=== PATIENT | male | born 1950 | race Caucasian/White ===

== ENCOUNTER → 2024-07-04 | Outpatient (CLI) | payer MEDICARE, OTHER, SELFPAY ==
--- NOTE | 2024-07-04 | XR_ITS ---
Examination: PA lateral chest 2 views TECHNIQUE: Upright PA lateral chest 2 views Exam date and time: July 04, 2024 1130 hours Comparison October 17, 2023 INDICATIONS: History left lung pneumonia, bilateral pulmonary nodules on CT chest October 17, 2023 FINDINGS: Normal heart size No current pneumonia Suspicious for 5 mm pulmonary nodule left upper lobe IMPRESSION: No current pneumonia Suspicious for 5 mm pulmonary nodule left upper lobe, consider repeat CT chest without contrast to compare with the October 17, 2023 exam
[2024-07-04 12:04] LABS: Basophils % (Auto) 1 % (0-2.5); Eosinophils # (Auto) 0.2 Thou/mm3 (0.0-0.5); Eosinophils % (Auto) 3 % (0-10); Hematocrit 42.1 % (41.0-53.0); Hemoglobin 14.8 g/dL (13.5-16.0); Immature Granulocytes % (Auto) 0 % (0-0); Immature Granulocytes Auto 0.02 Thou/mm3 (0.00-0.00); Lymphocytes # (Auto) 1.2 Thou/mm3 (1.0-4.8); Lymphocytes % (Auto) 21 % (10-50); Mean Corpuscular HGB Conc 35.2 g/dl (31.0-37.0); Mean Corpuscular Hemoglobin 33.4 pg (25.0-35.0); Mean Corpuscular Volume 95 fL (80-100); Monocytes # (Auto) 0.5 Thou/mm3 (0.0-0.8); Monocytes % (Auto) 10 % (0-12); Neutrophils # (Auto) 3.6 Thou/mm3 (1.8-7.7); Neutrophils % (Auto) 66 % (37-80); Nucleated Red Blood Cell % 0 /100 WBC (0); Platelet Count 184 Thou/mm3 (140-440); RDW Standard Deviation 44.9 fL (35.1-43.9); Red Blood Count 4.43 Miln/mm3 (4.50-5.90); White Blood Count 5.5 Thou/mm3 (3.8-10.6)
[2024-07-04 12:19] LABS: Glucose Estimated Average 103 mg/dL (80-131); Hemoglobin A1C 5.2 % Hgb (4.8-6.0)
[2024-07-04 12:44] LABS: Anion Gap 9 (7-16); BUN/Creatinine Ratio 14 Ratio (12-20); Blood Urea Nitrogen 20 mg/dL (9-23); Carbon Dioxide 25.5 mMol/L (20.0-31.0); Chloride 109 mMol/L (98-107); Creatinine (Component) 1.4 mg/dL (0.6-1.3); Sodium 143 mMol/L (136-145); eGFR 53 See Note
[2024-07-04 12:45] LABS: Alanine Aminotransferase 44 U/L (10-49); Albumin, Serum 4.4 gm/dL (3.4-4.8); Albumin/Globulin Ratio 1.8 (1.2-2.2); Alkaline Phosphatase 79 U/L (46-116); Aspartate Amino Transferase 17 U/L (0-34); Calcium 9.3 mg/dL (8.3-10.6); Calcium (Corrected) 9.3 mg/dL (8.5-10.1); Cardiac Risk Estimate 3.9 RATIO (4.0-6.7); Cholesterol 151 mg/dL (132-200); Free T4 (Free Thyroxine) 1.15 ng/dL (0.89-1.76); Globulin 2.5 gm/dL (2.3-3.5); Glucose 115 mg/dL (74-106); HDL Cholesterol 39 mg/dL (40-60); LDL Cholesterol,Calculated 92 mg/dL (0-130); Osmolality,Calculated 288 (275-295); Thyroid Stimulating Hormone 1.35 uIU/mL (0.55-4.78); Total Protein 6.9 gm/dL (5.7-8.2); Triglycerides 101 mg/dL (30-150)
[2024-07-04 13:00] LABS: Vitamin D 25 Hydroxy Total 23.6 ng/mL (7.3-40.2)
[2024-07-04 13:19] LABS: Hepatitis C Antibody Non Reactive (Non React)
[2024-07-09 19:49] LABS: PSA, Free 0.37 ng/mL; PSA, Total 0.8 ng/mL (< OR = 4.0)
== END | disposition home or self-care (01) ==
LOC: CDIM 10:23 → COPL 11:38
PROVIDERS: PCP Family Medicine; Referring Provider Nurse Practitioner Family; Visit Provider Radiology Diagnostic Radiology
DX: R05.9 Cough, unspecified (principal); E55.9 Vitamin D deficiency, unspecified; Z13.1 Encounter for screening for diabetes mellitus; Z12.5 Encounter for screening for malignant neoplasm of prostate; Z11.59 Encounter for screening for other viral diseases; Z13.220 Encounter for screening for lipoid disorders; Z13.29 Encounter for screening for other suspected endocrine disorder
CPT/HCPCS: 36415; 71046; 80053; 80061; 82306; 83036; 84153; 84154; 84439; 84443; 85025; 86803

== ENCOUNTER → 2024-08-22 | Outpatient (CLI) | payer MEDICARE, OTHER, SELFPAY ==
--- NOTE | 2024-08-22 13:00 | XR_ITS ---
Examination: CT chest, without intravenous contrast. Sagittal and coronal 2-D reconstructions. Exam date and time: August 22, 2024 1305 hours Comparison October 17, 2023 INDICATIONS: Chest CT 06/18/2023 numerous bilateral solid pulmonary nodules ranging in size from 3 10 mm CTDI:vol (mGy) 18.8 DLP: (mGycm) 802 Technique: Multiple 3.0 mm axial sections of the chest to been obtained. Bone and lung density settings are obtained. Sagittal and coronal 2-D reconstructions have been obtained. Low dose protocols were performed. One or more of the following dose reduction techniques were used; automated exposure control, adjustment of the mA and/or KV according to patient size, use of iterative reconstruction technique. Findings: AP dimension ascending thoracic aorta 4.9 cm Pulmonary artery segments are not enlarged Mild calcification left anterior descending coronary artery Mild enlargement left atrium left ventricle No definite change in bilateral pulmonary nodules No pneumonia or pulmonary edema No focal liver or splenic lesions Gallstones IMPRESSION: Aneurysmal dilatation ascending thoracic aorta No definite change in bilateral pulmonary nodules, recommend 1 continued 6 month follow-up CT chest without contrast
== END | disposition home or self-care (01) ==
LOC: CCTX 12:56
PROVIDERS: PCP Nurse Practitioner Family; Referring Provider Nurse Practitioner Family; Visit Provider Nurse Practitioner Family
DX: I71.21 Aneurysm of the ascending aorta, without rupture (principal); R91.8 Other nonspecific abnormal finding of lung field
CPT/HCPCS: 71250

== ENCOUNTER 2024-10-18 05:50 | Emergency (ER) | payer MEDICARE, OTHER, SELFPAY ==
[2024-10-18 05:52] VITALS: BP 160/82; PULSE 70; RESP 18; TEMP 37.1; O2SAT 96; BMI 36.3
--- NOTE | 2024-10-18 06:48 | EDNOTE_ITS ---
ED Dental RME/HPI General Chief complaint: Dental/Oral/Throat Stated complaint: THROAT PAIN Time Seen by Provider: 10/18/24 06:19 Arrival date/time: 10/18/24 05:50 This is a 74-year-old male that comes in with complaints of throat pain for the past few days. Patient denies any fever or chills. Patient denies any other complaints. Patient states that he does have congestion sometimes but it is not more within the ordinary congestion. Patient denies any nausea, vomiting, diarrhea, rash. Related Data Home Medications ?Medication ?Instructions ?Recorded ?Confirmed albuterol sulfate 90 mcg/actuation 2 puff inhalation Q 4HR PRN 04/20/20 04/20/20 aerosol inhaler Shortness Of Breath Or Wheez ing famotidine 40 mg tablet (Pepcid) 40 mg PO QDAY 0 04/20/20 Previous Rx's ?Medication ?Instructions ?Recorded amoxicillin 875 mg tablet 875 mg PO BID #20 tabs 10/16 azithromycin 250 mg tablet See Rx Instructions PO .COM PLEX #6 10/17/23 tabs ibuprofen 800 mg tablet 800 mg PO Q6H PRN pain #10 t abs 10/18/24 Allergies Allergy/AdvReac Type Severity Reaction Status Date / Time Iodinated Contrast Media Allergy Verified 10/18/24 05:59 Review of Systems Review of Systems Systems Reviewed: All systems reviewed, normal except as documented Past Medical History Past Medical History RESPIRATORY: Positive Asthma (Per Pt he does not have asthma) GENITOURINARY: Positive Kidney Stones MUSCULOSKELETAL: Positive Arthritis Social History SMOKING STATUS: Never smoker SUBSTANCE USE: does not use ALCOHOL: Never ED Exam Narrative Physical exam: VITAL SIGNS: Reviewed. GENERAL APPEARANCE: Alert and interactive, follows commands, no acute distress, HEAD AND FACE: Non-traumatic. ENT: PERRL, conjuctiva pink and clear, eyelid no trauma, Mucous membrane moist. Mild erythema to posterior pharynx NECK: Supple, nontender, no nuchal rigidity. CHEST: No tenderness, no crepitus, no paradoxical movement, no retractions. LUNGS: Clear, well ventilated, symmetric, no rales, no wheezing, no rhonchi, no stridor, good breath sounds bilaterally. HEART: Regular rate, regular rhythm, no murmur, no gallops. ABDOMEN: Soft, nondistended, no guarding, nontender NEUROLOGICAL: Gross motor function intact sensory function intact, Appropriate for age. MUSCULOSKELETAL: low back nontender, full range of motion. EXTREMITIES: No redness no swelling no skin breakdown on bilateral foot and leg. Distal neurovascular status intact bilateral foot SKIN: Color pink, dry, no rash, no lacerations, no abrasions, no contusions. Course Quality Measures none Orders Category Date Time Status Strep A Rapid Stat Lab 10/18/24 06:38 Completed Acetaminophen Tab [Tylenol ES Tab] Med 10/18/24 06:36 Discontinued 1,000 mg PO X1 ONE Dexamethasone Inj [Decadron Inj] Med 10/18/24 06:36 Discontinued 10 mg PO X1 ONE Ibuprofen Tab [Motrin Tab] Med 10/18/24 06:35 Discontinued 800 mg PO X1 ONE Vital Signs Vital signs: Vital Signs Temperature 98.8 F 10/18/24 05:52 Pulse Rate 70 10/18/24 05:52 Respiratory Rate 18 10/18/24 05:52 Blood Pressure 160/82 H 10/18/24 05:52 Pulse Oximetry (%) 96 10/18/24 05:52 Oxygen Delivery Method Room Air 10/18/24 05:52 Dental / Oral MDM Narrative MDM Narrative:: Pt given decadron, tylenol and ibuprofen. Pt felt better. Pt strep was negative. Pt told to follow up with primary provider in 1-2 days. Come back to ED if symptoms change or worsen. Patient data External records reviewed:: [facility] previous records Clinical information provided by:: patient Social determinants that could affect healthcare access:: none Patient has the following chronic illnesses:: None How is presenting disease/condition affected by chronic disease/condition?: no chronic disease Evaluation data The following diagnostics were reviewed and interpreted by me:: lab results Lab and/or radiology exams considered but not ordered:: None Interpretation Summary: See note Medications / Prescriptions Medications or Prescriptions considered but not ordered:: None Medication administrations:: Medication Administration History Discontinued Medications Acetaminophen (Acetaminophen 500 Mg Tablet) 1,000 mg PO X1 ONE Stop: 10/18/24 06:37 Last Admin: 10/18/24 06:59 Dose: 1,000 mg Documented By: AC Dexamethasone Sodium Phosphate (Dexamethasone Sod Phos Inj 10 Mg/Ml Vial) 10 mg PO X1 ONE Stop: 10/18/24 06:37 Last Admin: 10/18/24 07:00 Dose: 10 mg Documented By: RANDY Ibuprofen (Ibuprofen Tab 400 Mg Tablet) 800 mg PO X1 ONE Stop: 10/18/24 06:36 Last Admin: 10/18/24 06:59 Dose: 800 mg Documented By: RANDY See MAR Consultations Consultation(s) initiated? (list below): No Diagnosis Dental Differential Diagnosis: other (Strep throat, URI, COVID, influenza) Most likely diagnosis given after review of the tests above:: URI Admission Indicated Admission indicated?: not indicated Admission Request Was there a request for admission?: No Disposition Plan Disposition Plan: Discharge Discharge Attestation Discharge Attestation: The patient and all family members were given an opportunity to ask questions and understood the discharge instructions. Discharge instructions specifically effects, indications for sooner follow up or return to the emergency department, and the expected course of current diagnosis. Patient condition: Stable Discharge Plan Plan Patient Disposition: HOME (Self Care) Patient condition on transfer: Stable Prescriptions/Referrals Prescriptions/Med Rec: New ibuprofen 800 mg tablet 800 mg PO Q6H PRN (Reason: pain) Qty: 10 0RF No Action famotidine [Pepcid] 40 mg tablet 40 mg PO QDAY albuterol sulfate 90 mcg/actuation HFA aerosol inhaler 2 puff INHALATION Q4HR PRN (Reason: Shortness Of Breath Or Wheezing) Patient Comments: TAKE 2 PUFFS BY MOUTH EVERY 4 HOURS NEEDED amoxicillin 875 mg tablet 875 mg PO BID Qty: 20 0RF azithromycin 250 mg tablet See Rx Instructions .ROUTE .COMPLEX Qty: 6 0RF Rx Instructions: For 250 mg dose pack: take 500 mg today (day 1), then 250 mg for 4 days (days 2-5) Referrals: Dusty Huynh([facility]MD [Primary Care Provider] - In 1 week Problem List Clinical Impression: URI (upper respiratory infection) Patient/Caregiver Discharge Instructions Discharge Activity: activity as tolerated Education Materials: ED URI, Viral, No Abx (Adult) Additional Instructions: Follow up with primary provider in 1-2 days. Come back to ED if symptoms change or worsen Print Language: Persian Stand Alone Forms: Jackie Award Info., Patient Portal Info Letter PA/SOWMYA Supervising Physician JHONATAN/SOWMYA Supervising Physician: agnela
[2024-10-18 06:58] LABS: Strep A Rapid Negative (Negative)
[2024-10-18] MEDS: IBUPROFEN TAB 400 MG TABLET 800 MG PO (06:59)
[2024-10-18] MEDS: ACETAMINOPHEN 500 MG TABLET 1000 MG PO (06:59)
[2024-10-18] MEDS: DEXAMETHASONE SOD PHOS INJ 10 MG/ML VIAL PO (07:00)
== END 2024-10-18 08:05 | disposition home or self-care (01) ==
PROVIDERS: Nurse Practitioner Family; Emergency Provider Emergency Medicine; PCP Family Medicine
DX: J06.9 Acute upper respiratory infection, unspecified (principal)
CPT/HCPCS: 87651; 99283; J1100; A9270

== ENCOUNTER → 2024-10-20 | Outpatient (CLI) | payer MEDICARE, OTHER, SELFPAY ==
--- NOTE | 2024-10-20 12:13 | XR_ITS ---
Examination: Lumbar spine 3 views Technique one AP lateral coned lateral lower lumbar spine 3 views Date and time: October 20, 2024 1309 hours INDICATIONS: Low back pain months. FINDINGS: Adequate alignment lumbar vertebral bodies No lumbar fracture Mild to moderate diffuse lumbar disc narrowing Grade 1 anterolisthesis L3 on L4 Prominent lumbar spondylosis IMPRESSION: Mild to moderate diffuse lumbar degenerative disc disease
== END | disposition home or self-care (01) ==
PROVIDERS: PCP Nurse Practitioner Family; Referring Provider Nurse Practitioner Family; Visit Provider Nurse Practitioner Family
DX: M51.360 Other intervertebral disc degeneration, lumbar region with discogenic back pain only (principal)
CPT/HCPCS: 72100

== ENCOUNTER → 2024-12-02 | Outpatient (CLI) | payer MEDICARE, OTHER, SELFPAY ==
--- NOTE | 2024-12-02 13:14 | XR_ITS ---
Examination: Ultrasound soft tissue neck TECHNIQUE: Real scale sonographic images soft tissue neck Date and time: December 02, 2024, 1403 hours INDICATIONS: Sore throat 6 months. FINDINGS: No cystic or soft tissue mass in the neck IMPRESSION: No cystic or soft tissue masses in the neck
== END | disposition home or self-care (01) ==
PROVIDERS: PCP Nurse Practitioner Family; Referring Provider Nurse Practitioner Family; Visit Provider Nurse Practitioner Family
DX: J02.9 Acute pharyngitis, unspecified (principal)
CPT/HCPCS: 76536

== ENCOUNTER → 2024-12-05 | Outpatient (CLI) | payer MEDICARE, OTHER, SELFPAY ==
--- NOTE | 2024-12-05 10:50 | XR_ITS ---
Examination: Arterial duplex lower extremity study. Date and time of exam: December 05, 2024 1106 hours INDICATIONS: Bilateral leg pain and heaviness beginning one year ago Findings: Duplex sonographic imaging of the lower extremity arteries using B-mode/Real scale imaging and Doppler spectral analysis and color flow. Ankle brachial indices have been recorded. Right common femoral artery demonstrates triphasic flow. Right superficial femoral artery demonstrates triphasic flow. Right popliteal artery demonstrates triphasic flow. Right posterior tibial artery demonstrated triphasic flow. Right ankle/brachial index is 1.1. Left common femoral artery demonstrates triphasic flow. Left superficial femoral artery demonstrates triphasic flow. Left popliteal artery demonstrates triphasic flow. Left posterior tibial artery demonstrated triphasic flow. Left ankle/brachial index is 1.0. Impression: Negative study
== END | disposition home or self-care (01) ==
PROVIDERS: PCP Nurse Practitioner Family; Referring Provider Podiatrist; Visit Provider Podiatrist
DX: M79.605 Pain in left leg (principal); M79.604 Pain in right leg
CPT/HCPCS: 93925

== ENCOUNTER → 2024-12-31 | Outpatient (CLI) | payer MEDICARE, OTHER, SELFPAY ==
[2024-12-31 11:41] LABS: Blood Urea Nitrogen 27 mg/dL (9-23); Creatinine (Component) 1.5 mg/dL (0.6-1.3); eGFR 49 See Note
== END | disposition home or self-care (01) ==
LOC: COPL 10:26
PROVIDERS: PCP Family Medicine
DX: I70.213 Atherosclerosis of native arteries of extremities with intermittent claudication, bilateral legs (principal)
CPT/HCPCS: 36415; 82565; 84520

== ENCOUNTER 2025-01-07 12:38 | Outpatient (CLI) | payer MEDICARE, OTHER, SELFPAY ==
--- NOTE | 2025-01-07 11:30 | XR_ITS ---
Examination: CTA abdominal aorta iliofemoral runoff. 2-D sagittal coronal reconstructions. 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 3-D reconstructions, vascular 3-D postprocessing, including vascular maximum intensity projection images, 3-D volume rendering Low dose protocols were performed. One or more of the following dose reduction techniques were used; automated exposure control, adjustment of the mA and/or KV according to patient size, use of iterative reconstruction technique. Findings: No focal liver or splenic lesions Gallstones. No pancreatic or adrenal mass. Moderate renal parenchymal scar formation. No bowel obstruction No pericecal inflammatory change No diverticulitis Contracted urinary bladder Moderate prostatomegaly Abdominal aortic calcification no aneurysmal dilatation Common iliac and external iliac common femoral arteries intact No significant stenoses superficial femoral arteries bilaterally as well as popliteal arteries Trifurcation arteries fill to the ankles bilaterally IMPRESSION: No significant obstructive arterial disease involving the lower extremities.
[2025-01-07] MEDS: HYDROCORTISONE SOD SUCC INJ 100 MG 2 ML VIAL IV (13:50)
[2025-01-07 14:05] VITALS: BP 156/82; PULSE 62; RESP 17; TEMP 36.5; O2SAT 95
[2025-01-07 14:10] VITALS: BP 146/85; PULSE 59; RESP 18; O2SAT 96
[2025-01-07 14:13] VITALS: BP 155/108; PULSE 62; RESP 17; O2SAT 97
[2025-01-07 14:15] VITALS: BP 137/76; PULSE 59; RESP 17; O2SAT 96
[2025-01-07 14:20] VITALS: BP 144/78; PULSE 61; RESP 16; O2SAT 99
[2025-01-07 14:25] VITALS: BP 132/74; PULSE 59; RESP 16; TEMP 36.4; O2SAT 93
--- NOTE | 2025-01-07 14:43 | PC.NURSE ---
see MAR for medications given, patient has been monitored in cathlab for 30 minutes, vitals are stable and there are no signs of allergic reaction, patients vital sings are stable and breathing normally, there are no signs or airway blockage, hives or swelling,
== END 2025-01-07 14:35 | disposition home or self-care (01) ==
PROVIDERS: PCP Family Medicine; Referring Provider Nurse Practitioner Family; Visit Provider Nurse Practitioner Family
DX: I70.213 Atherosclerosis of native arteries of extremities with intermittent claudication, bilateral legs (principal)
CPT/HCPCS: 75635; A4649; J1720; Q9967

== ENCOUNTER → 2025-04-28 | Outpatient (CLI) | payer MEDICARE, OTHER, SELFPAY ==
--- NOTE | 2025-04-28 13:30 | XR_ITS ---
Examination: CT chest, without intravenous contrast. Sagittal and coronal 2-D reconstructions. Exam date and time: April 28, 2025, 1339 hours INDICATIONS: Bilateral pulmonary nodules on CT chest August 22, 2024, October 17, 2023 CTDI:vol (mGy) 19 DLP: (mGycm) 834 Technique: Multiple 3.0 mm axial sections of the chest to been obtained. Bone and lung density settings are obtained. Sagittal and coronal 2-D reconstructions have been obtained. Low dose protocols were performed. One or more of the following dose reduction techniques were used; automated exposure control, adjustment of the mA and/or KV according to patient size, use of iterative reconstruction technique. Findings: Aneurysmal dilatation ascending thoracic aorta, AP dimension 4.7 cm Pulmonary artery segments are not enlarged No pulmonary artery emboli Mild calcification left anterior ascending coronary artery Stable subcentimeter bilateral pulmonary nodules, no new pulmonary nodules Gallstones Fatty infiltration throughout the liver No pancreatic or adrenal mass Minute bilateral renal calculi IMPRESSION: Mild aneurysmal dilatation ascending thoracic aorta, AP dimension 4.7 cm Pulmonary artery segments are not enlarged Stable subcentimeter bilateral pulmonary nodules compared with CT chest films dating to October 17, 2023, no new pulmonary nodules
== END | disposition home or self-care (01) ==
PROVIDERS: PCP Family Medicine; Referring Provider Student in an Organized Health Care Education/Training Program; Visit Provider Student in an Organized Health Care Education/Training Program
DX: I71.20 Thoracic aortic aneurysm, without rupture, unspecified (principal); R91.8 Other nonspecific abnormal finding of lung field
CPT/HCPCS: 71250